=== PATIENT | male | born 1940 | race Caucasian/White ===

== ENCOUNTER 2016-10-22 23:39 | Emergency (ER) | payer MEDICARE ==
--- NOTE | 2016-10-23 15:54 | ER ---
ADMIT: 10/22/2016 RM/LOC: [facility] MR#: [id number] [id number] SHAKEEL SANTOS [address] [place] [address] Emergency Room Report SEX: M AGE: 76 : 1940 DATE: 10/22/2016 A 76-year-old gentleman, who was gardening when he developed tender itchy area over the left forearm. He was seen in the Urgent Care. He was given a prescription for Keflex. He comes to the Emergency Department after one dose of Keflex concerned because the swelling has not regressed and the erythema has mildly progressed. See T-sheet for history and physical. This appears to be a localized allergic reaction. I did not see any obvious bite site from an insect. He was given an Atarax in the Emergency Department and a cool compress to the area. Encouraged to continue his Keflex and use the Atarax for the itching and swelling. If this does not improve within 48 to 72 hours, he should return to the Emergency Department to see his primary doctor. DIAGNOSIS: Localized allergic reaction. Alvino Azar MD/ zohreh JOB #: [id number] CC: Marquez Franklin MD, Attending Physician Alejandro Wilson MD, Family Physician
== END 2016-10-23 00:50 | disposition home or self-care (01) ==
LOC: ER 23:39
DX: T78.40XA Allergy, unspecified, initial encounter (principal); Z79.899 Other long term (current) drug therapy